=== PATIENT | female | born 2000 | race Caucasian/White ===

== ENCOUNTER 2022-10-26 20:04 | Emergency (ER) | payer OTHER ==
[~2022-10-26] VITALS: Ht 167.6 cm; Wt 105.0 kg
[2022-10-26 20:18] VITALS: TEMP 98.2
[2022-10-26 21:38] LABS: BASO # 0.1 K/mm3 (0.0-0.2); BASO % 0.8 % (0.0-2.0); EOS # 1.7 K/mm3 (0.0-0.7); EOS % 14.8 % (0.0-4.0); GRAN # 6.4 K/mm3 (1.4-6.5); GRAN % 54.5 % (42.2-75.2); HEMATOCRIT 44.5 % (35.0-45.0); HEMOGLOBIN 14.6 g/dl (12.0-15.0); LYMPH # 2.6 K/mm3 (1.2-3.4); LYMPH % 22.2 % (20.0-51.0); MEAN CELL VOLUME 91 fl (80.0-95.0); MEAN CORPUSCULAR HEMOGLOBIN 30 pg (26-32); MEAN CORPUSCULAR HGB CONC 33 g/dl (33.0-37.0); MONO # 0.9 K/mm3 (0.1-0.6); MONO % 7.4 % (1.7-9.3); PLATELET COUNT 351 K/mm3 (130-400); RED BLOOD COUNT 4.88 M/mm3 (4.10-5.30); REDCELL DISTRIBUTION WIDTH-CV 11.7 % (11.5-14.5)
[2022-10-26 21:49] LABS: ALANINE AMINOTRANSFERASE 41 U/L (0-55); ALBUMIN 4.3 gm/dL (3.5-5.0); ALKALINE PHOSPHATASE 65 U/L (40-150); ANION GAP 11 mmol/L (7-16); AST,SGOT 26 U/L (5-34); BILIRUBIN,TOTAL 0.3 mg/dL (0.2-1.2); BLOOD UREA NITROGEN 15 mg/dL (7-19); CALCIUM 10.1 mg/dL (8.4-10.2); CARBON DIOXIDE 23 mmol/L (22-29); CHLORIDE 108 mmol/L (98-107); CREATININE, serum 0.71 mg/dL (0.57-1.11); GLUCOSE 87 mg/dL (70-99); POTASSIUM 3.7 mmol/L (3.5-4.5); SODIUM 142 mmol/L (136-145); TOTAL PROTEIN 8.2 gm/dL (6.2-8.1)
[2022-10-26 21:56] LABS: TROPONIN-I < 0.010 ng/mL (0.00-0.033)
[2022-10-26] MEDS ORDERED: ZOFRAN ODT4 MG PO (22:23)
[2022-10-26 22:34] VITALS: BP 119/78; PULSE 75
== END 2022-10-27 00:23 | disposition home or self-care (01) ==
LOC: COL.ER 20:04
PROVIDERS: Personal Emergency Response Attendant
DX: S09.90XA Unspecified injury of head, initial encounter (principal); R55 Syncope and collapse; W18.30XA Fall on same level, unspecified, initial encounter; W22.01XA Walked into wall, initial encounter
CPT/HCPCS: J7030

== ENCOUNTER 2024-06-12 18:28 | Emergency (ER) | payer BC ==
[~2024-06-12] VITALS: Ht 167.6 cm; Wt 113.6 kg
[~2024-06-12 18:28] MED LIST: BENTYL 20MG20 MG/TAB PO; NAPROSYN500 MG PO; ZOFRAN ODT4 MG PO
[2024-06-12] MEDS ORDERED: Pantoprazole 40 MG in NS 10 ML IV ONE (19:00)
[2024-06-12] MEDS ORDERED: LR 1,000 ML IV ONE (19:00)
[2024-06-12] MEDS ORDERED: Haloperidol Lactate 5 MG/ML VIAL IV ONE (19:00)
[2024-06-12] MEDS ORDERED: diphenhydrAMINE 50 MG/ML 1 ML VIAL IV ONE (19:00)
[2024-06-12 19:10] LABS: BASO % 0.3 % (0.0-2.0); EOS # 0.2 K/mm3 (0.0-0.7); EOS % 2.6 % (0.0-4.0); GRAN # 7.9 K/mm3 (1.4-6.5); GRAN % 83.9 % (42.2-75.2); HEMATOCRIT 43.3 % (37.0-47.0); HEMOGLOBIN 14.6 g/dl (12.5-16.0); LYMPH # 0.6 K/mm3 (1.2-3.4); LYMPH % 6.3 % (20.0-51.0); MEAN CELL VOLUME 88 fl (80.0-100.0); MEAN CORPUSCULAR HEMOGLOBIN 30 pg (27-31); MEAN CORPUSCULAR HGB CONC 34 g/dl (33.0-37.0); MEAN PLATELET VOLUME 10.6 fl (7.4-10.4); MONO # 0.6 K/mm3 (0.1-0.6); MONO % 6.4 % (1.7-9.3); PLATELET COUNT 244 K/mm3 (130-400); REDCELL DISTRIBUTION WIDTH-CV 11.5 % (11.5-14.5)
[2024-06-12 19:30] LABS: COLLECTION METHOD CLEAN CATCH
[2024-06-12 19:31] LABS: ALBUMIN 4.1 g/dL (3.5-5.0); BILIRUBIN,TOTAL 1.3 mg/dL (0.2-1.2); CALCIUM 9.1 mg/dL (8.4-10.2); CREATININE, serum 0.71 mg/dL (0.57-1.11); MAGNESIUM 1.8 mg/dL (1.6-2.6); POTASSIUM 3.3 mEq/L (3.5-4.5); TOTAL PROTEIN 7.8 g/dl (6.2-8.1)
[2024-06-12 19:41] LABS: URINE APPEARANCE CLOUDY (CLEAR/HAZY); URINE BLOOD NEGATIVE (NEGATIVE); URINE COLOR YELLOW (YELLOW); URINE GLUCOSE NEGATIVE (NEGATIVE); URINE KETONE TRACE (NEGATIVE); URINE NITRATE NEGATIVE (NEGATIVE); URINE PROTEIN(semi-quant) 1+ (NEGATIVE)
[2024-06-12] MEDS ORDERED: Iohexol 300 - 100 ML VIAL IV ONE (19:52)
[2024-06-12] MEDS ORDERED: NS 50 ML IV ONE (19:53)
[2024-06-12 20:02] LABS: URINE BACTERIA OCCASIONAL /hpf (NONE SEEN)
[2024-06-12 21:59] VITALS: BP 118/79; PULSE 83; TEMP 98.1
== END 2024-06-12 21:59 | disposition home or self-care (01) ==
LOC: COL.ER 18:28
PROVIDERS: Emergency Medicine
DX: R10.9 Unspecified abdominal pain (principal); R11.2 Nausea with vomiting, unspecified
CPT/HCPCS: J1200; J1630; J2470; J7120; Q9967